=== PATIENT | male | born 1995 ===

== ENCOUNTER 2017-05-05 17:50 | Emergency (ER) | payer OTHER ==
[2017-05-05 17:58] VITALS: BP 151/81; PULSE 85; RESP 16; TEMP 97.3; O2SAT 98
--- NOTE | 2017-05-05 19:50 | ED PDOC ---
HPI: General Adult Time Seen by Provider: 05/05/17 18:20 Chief Complaint (Nursing): Abnormal Skin Integrity Chief Complaint (Provider): Itchy rash History Per: Patient History/Exam Limitations: no limitations Onset/Duration Of Symptoms: Days Have you had recent travel within the past 21 days to any of the following countries: [place], [place], [place] or [place]?: No Current Symptoms Are (Timing): Still Present Past Medical History Vital Signs: Last Vital Signs Temp 97.3 F L 05/05/17 17:56 Pulse 85 05/05/17 17:56 Resp 16 05/05/17 17:56 BP 151/81 H 05/05/17 17:56 Pulse Ox 98 05/05/17 17:56 - Home Medications Home Medications: Ambulatory Orders Medication Instructions Recorded Clotrimazole 1% Cream [Lotrimin 1% 1 applic TOP BID #2 tube 05/05/17 CREAM] - Allergies Allergies/Adverse Reactions: Allergies Allergy/AdvReac Type Severity Reaction Status Date / Time No Known Allergies Allergy Verified 05/05/17 17:59 - ECG O2 Sat by Pulse Oximetry: 98 Disposition - Clinical Impression Clinical Impression: Fungal skin infection - Patient ED Disposition Is Patient to be Admitted: No Counseled Patient/Family Regarding: Diagnosis, Need For Followup, Rx Given - Disposition Disposition: Routine/Home Disposition Time: 19:48 Condition: STABLE Prescriptions: Clotrimazole 1% Cream [Lotrimin 1% CREAM] 1 applic TOP BID #2 tube Instructions: Fungal Culture
== END 2017-05-05 19:56 | disposition home or self-care (01) ==
LOC: H.ER 17:50
DX: B36.9 Superficial mycosis, unspecified (principal)